=== PATIENT | female | born 1965 | race Two or more races ===

== ENCOUNTER 2018-11-25 17:54 | Emergency (ER) | payer MEDICAID ==
[~2018-11-25] VITALS: Ht 149.9 cm; Wt 73.0 kg
[2018-11-25 21:07] VITALS: BP 149/95
== END 2018-11-26 03:41 | disposition left against medical advice (07) ==
LOC: ER 17:54
DX: Z53.21 Procedure and treatment not carried out due to patient leaving prior to being seen by health care provider (principal)